=== PATIENT | male | born 1965 | race Caucasian/White ===

== ENCOUNTER 2021-02-11 14:28 | Observation (INO) | payer OTHER ==
[2021-02-11 14:52] LABS: CHLORIDE,CL 104 mEq/L (98-106); SODIUM,NA 142 mEq/L (136-145)
[2021-02-11] MEDS ORDERED: Ondansetron 4 MG Tab.DIS PO PRN (16:27)
[2021-02-11] MEDS ORDERED: Acetaminophen 325 MG Tab PO PRN (16:27)
[2021-02-11] MEDS ORDERED: Ondansetron 4 MG/2 ML SDV IV PRN (16:27)
[2021-02-11] MEDS ORDERED: Acetaminophen/oxyCODONE 325-5 MG Tab PO PRN (16:27)
[2021-02-11] MEDS ORDERED: Ketorolac 30 MG/ML SDV IVPUSH PRN (16:29)
[2021-02-11] MEDS: Sodium Chloride 0.9% 1,000 ML IV SCH ×2 (17:10→23:34)
[2021-02-11] MEDS: Tamsulosin 0.4 MG Cap.ER PO SCH (17:11)
[2021-02-11] MEDS ORDERED: Enoxaparin 40 MG/0.4 ML Syringe SUBCUT SCH (20:00)
[2021-02-12] MEDS: Sodium Chloride 0.9% 1,000 ML IV SCH (05:09)
[2021-02-12] MEDS: Tamsulosin 0.4 MG Cap.ER PO SCH (07:45)
[2021-02-12 07:48] VITALS: BP 111/73; PULSE 60
--- NOTE | 2021-02-12 12:03 | DISCH ---
ADMISSION DIAGNOSIS: Left ureteral stone, obstructing. DISCHARGE DIAGNOSIS: LEFT URETERAL STONE, OBSTRUCTING. HISTORY: The patient is a 55-year-old male who presented with about 4 days of left flank pain. No significant history of hematuria or urinary frequency, but does have a history of kidney stones. His workup in the clinic including a KUB showed a stone in the mid ureter on the left side, approximately 7 mm to 8 mm. We elected to put him in the hospital for pain control and IV fluids. HOSPITAL COURSE: The patient was given normal saline throughout the night, approximately 2 L. He was started on oral Flomax and given a dose of Toradol 30 mg IV within about a half hour. His pain has been gone since admission and he remains pain-free on the date of discharge. Followup KUB shows the stone does not appear to have moved. A CT was done at the time of his admission, which showed hydroureter and hydronephrosis. I was able to contact Dr. Manish Cortez at [facility], Urology, and he agrees to see him tomorrow for definitive removal of stone. The patient will go home on instructions for ongoing urine straining. He has gotten his dose of Flomax today and a prescription will be written by Dr. Cortez should he deem necessary tomorrow. The patient is given p.r.n. hydrocodone to use for pain and Dr. Cortez's office has contact number for this pleasant patient for followup tomorrow morning at [place]. COMPLICATIONS: During his stay were none. CONSULTATIONS: None. PROCEDURES: CT abdomen and pelvis without contrast. DISPOSITION: Discharged home. JHONATAN/JANES /[id number]
== END 2021-02-12 11:30 | disposition home or self-care (01) ==
LOC: CC.FCMC 14:28 → CC.MS 15:25 → UNDOADMOB 15:25 → CC.MS 16:27
PROVIDERS: ADMIT Family Medicine; ATTEND Family Medicine
DX: N20.1 Calculus of ureter (principal); N40.0 Benign prostatic hyperplasia without lower urinary tract symptoms; Z98.890 Other specified postprocedural states
CPT/HCPCS: 36415; 74018; 74019; 74176; 80053; 81001; 85025; 86140; 96372; 96374; A9270-GY; G0378; J1650; J1885; J7030